=== PATIENT | male | born 1965 | race African-American/Black ===

== ENCOUNTER 2017-02-20 15:48 | Emergency (ER) | payer OTHER ==
[~2017-02-20] VITALS: Ht 190.5 cm; Wt 113.4 kg
--- NOTE | 2017-02-20 16:26 | ED HAND/WRIST INJURY COMPLAINT ---
History of Present Illness General Chief Complaint: Hand or Wrist Injury Stated Complaint: SIB [facility] MED FOR R WRIST EVAL Source: patient Exam Limitations: no limitations Vital Signs & Intake/Output Vital Signs & Intake/Output Vital Signs Date Time Temp Pulse Resp B/P B/P Pulse O2 O2 Flow FiO2 Mean Ox Delivery Rate 02/20 1817 97.8 56 18 142/83 97 Room Air 02/20 1552 98.1 71 20 135/96 96 Room Air ED Intake and Output 02/21 0000 02/20 1200 Intake Total Output Total Balance Patient 250 lb Weight Weight Reported by Patient Measurement Method Allergies Coded Allergies: No Known Allergies (02/20/17) Reconcile Medications Amoxicillin/Potassium Clav (Augmentin 875-125 Tablet) 875 MG-125 MG TABLET 1 TAB PO BID prophylaxis Candesartan Cilexetil 32 MG TABLET 1 TAB PO DAILY BP (Reported) Indomethacin 25 MG CAPSULE 1 CAP PO TID PRN pain/inflammation with food Triage Note: PT TO ED FOR EVAL OF RIGHT WRIST. 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 UNKNOWN INJURY. WENT TO [facility] TODAY AND WAS TOLD TO COME TO ED DUE TO THE REDNESS AND SWELLING IN WRIST. PT HAD A WRIST SPLINT ON SYSTEM CONFIGURATION SPECIALIST. DECLINING MEDS IN TRIAGE. [facility] WORKERS COMP FORM WAS FILED AT [facility]. Triage Nurses Notes Reviewed? yes Occurred: this morning Duration: day(s): (3) Timing: no prior history Injury Environment: work Severity: moderate Severity Numbers: 7 Pain/Injury Location: Right: Wrist. Method of Injury: unknown Modifying Factors: Improves With: immobilization. Worsens With: movement. HPI: Patient is a 51-year-old male with history of hypertension presenting to the emergency department with chief complaint of right wrist pain, swelling and redness and getting worse over the past 3 days. Denies any specific injury but started noticing worsening symptoms at work. Pain is worse with movement of the right wrist. Denies any numbness or tingling. Has been taking Tylenol with little relief. He also has been wearing a wrist splint at home with relief as a stabilizes his right wrist. He was seen at occupational medicine today for evaluation and they were concerned with the redness of the sentiment for evaluation. Denies history of gout. No fevers or chills. No change in diet. (FRAN SPRINGER) Past History Travel History Traveled to [place] past 21 day No Medical History Any Pertinent Medical History? see below for history Cardiovascular: hypertension Surgical History Surgical History: non-contributory Psychosocial History What is your primary language Korean Tobacco Use: Never used ETOH Use: denies use Illicit Drug Use: denies illicit drug use Family History Hx Contributory? No (FRAN SPRINGER) Review of Systems Review of Systems Constitutional: Reports: no symptoms. Comments Review of systems: See HPI, All other systems negative. Constitutional, no chills fever or weight loss HEENT: No visual changes no sore throat no congestion Cardiovascular: No chest pain ,palpitation , orthopnea or ankle swelling Skin, no jaundice Respiratory: No dyspnea cough sputum or hemoptysis GI: No nausea no vomiting : No dysuria No hematuria Muscle skeletal: no back pain, no neck pain, Neurologic: No numbness no ba Psych: No stress anxiety Immunology: No splenectomy or history of AIDS (FRAN SPRINGER) Physical Exam Physical Exam General Appearance: well developed/nourished, no apparent distress, alert, awake , comfortable Hand Left: normal inspection, normal range of motion Hand Right: swelling, tender Comments: Well-developed well-nourished person in no acute distress HEENT: Nose is atraumatic. Neck: Normal inspection Back: Nontender Cardiovascular: normal JVP Respiratory: No respiratory distress. Extremity: Tender to palpation over the right distal radius, distal ulna with limited range of motion. Mild to moderate edema appreciated over this area. Mild erythema in this area with warmth to palpation. Capillary refill is intact in upper extremity as bilaterally. Radial pulses are 2+ bilaterally. Maintenance Repairer strength is equal and symmetric bilaterally. Pain with right wrist flexion and extension. Positive Phalen test. Pain with right wrist ulnar and radial deviation. Neuro: Alert oriented x3, motor sensory normal Skin: Erythema noted over the low aspect of the right wrist otherwise No appreciable rash on exposed skin, skin is warm and dry. Psych: Mood and affect is normal, memory and judgment is normal. (FRAN SPRINGER) Progress Differential Diagnosis: abscess, cellulitis, contusion, compartment syndrome, dislocation, fracture, gout, septic arthritis, sprain, tenosynovitis Plan of Care: Orders Procedure Date/time Status BLOOD CULTURE 02/20 1634 Active URIC ACID 02/20 1625 Complete WESTERGREN SED RATE 05/05 162 Complete COMPREHENSIVE METABOLIC PANEL 02/20 1625 Complete CBC WITHOUT DIFFERENTIAL 02/20 1625 Complete Laboratory Tests 02/20/17 1640: Anion Gap 12, Estimated GFR > 60, BUN/Creatinine Ratio 17.5, Glucose 169 H, Uric Acid 6.4, Calcium 9.2, Total Bilirubin 0.7, AST 25, ALT 44, Alkaline Phosphatase 57, Total Protein 7.3, Albumin 4.4, Globulin 2.9, Albumin/Globulin Ratio 1.5, CBC w Diff NO MAN DIFF REQ, RBC 5.16, MCV 83.7, MCH 27.5, RDW 14.4, MPV 9.8, Gran % 61.6, Lymphocytes % 30.3, Monocytes % 6.1, Eosinophils % 1.4, Basophils % 0.6, Absolute Granulocytes 4.6, Absolute Lymphocytes 2.3, Absolute Monocytes 0.5, Absolute Eosinophils 0.1, Absolute Basophils 0, PUBS MCHC 32.9 L , ESR Westergren 8 Microbiology 02/20 1714 BLOOD: Blood Culture - RECD 02/20 170 BLOOD: Blood Culture - RECD Diagnostic Imaging: Viewed by Me: Radiology Read, Ultrasound. Discussed w/RAD: Radiology Read, Ultrasound. Radiology Impression: PATIENT: NIALL LEVY PRESENT AGE : 51 PATIENT ACCOUNT NO: [id number] : 65 LOCATION: [facility] ORDERING PHYSICIAN: FRAN PRICE SERVICE DATE: 02/20/17 EXAM TYPE: US - US-SUPERFICIAL IMAGING EXTREMI EXAMINATION: US SUPERFICIAL IMAGING, EXTREMITY CLINICAL INFORMATION: Soft tissue swelling and pain in volar aspect of wrist. COMPARISON: None TECHNIQUE: Real-time sonographic imaging of soft tissues at the volar, radial aspect of the distal right forearm and right wrist was performed using a high-resolution linear 12 MHz transducer. FINDINGS: Minimal edema within subcutaneous tissues in the area of concern. No focal fluid collection. The radial artery is normal and the radial veins are compressible; no evidence of venous thrombosis. No soft tissue mass or volar wrist ganglion. The flexor tendons at the radial aspect of the wrist have normal caliber and echotexture. There are no abnormal fluid collections along the tendon sheaths. IMPRESSION: 1. Minimal edema within subcutaneous tissues in the area of concern. 2. No evidence of soft tissue mass, abscess or tenosynovitis., RESENT AGE: 51 PATIENT ACCOUNT NO: [id number] : 65 LOCATION: [facility] ORDERING PHYSICIAN: FRAN PRICE SERVICE DATE: 02/20/17 EXAM TYPE: RAD - XRY-WRIST COMPLETE-RIGHT EXAMINATION: XR WRIST, RIGHT CLINICAL INFORMATION: Pain. Redness. COMPARISON: None TECHNIQUE: AP, lateral, and oblique views of the right wrist. FINDINGS: No fracture. No dislocation. No focal bone lesion. 2 mm osseous density just distal to the tip of the ulnar styloid is chronic. There is small vague soft tissue calcifications in the wrist adjacent to the distal pole of the navicular bone. No radiopaque foreign body. No air in the soft tissue. IMPRESSION: 1. No acute osseous of noted. 2. Vague small area of soft tissue calcifications near the distal pole navicular bone. These are nonspecific. Could be dystrophic. DICTATED BY: CANDE DUKES MD DATE/TIME DICTATED:02/20/171704 HYDROELECTRIC POWERPLANT SUPERVISOR:KAI DATE/TIME TRANSCRIBED:02/20/171704 CONFIDENTIAL, DO NOT COPY WITHOUT APPROPRIATE AUTHORIZATION. <Electronically signed in Other Vendor System> SIGNED BY: CANDE DUKES MD 02/20/171710 Comments: Patient is afebrile, no elevation in white blood cell count, sedimentation rate is within normal range. I do not think this is a septic joint. Likely inflammatory/reactive process. Patient having significant reduction in symptoms after Toradol. Patient will be sent home with anti-inflammatory as well as antibiotic to cover for potential of cellulitis. He will follow-up with his primary care physician. He'll continue wearing the wrist splints. (NATIVIDAD PRICE,FRAN) Departure Departure Time of Disposition: 1800 Disposition: HOME OR SELF CARE Condition: Stable Clinical Impression Primary Impression: Tendinitis Secondary Impressions: Wrist sprain Qualifiers: Encounter type: initial encounter Laterality: right Qualified Code: S63.501A - Unspecified sprain of right wrist, initial encounter Referrals: ROMAN HANSEN,BEV Avila (PCP/Family) Additional Instructions: Follow-up with your primary care physician call to make an appointment. Rest and elevate your right wrist is much as possible. Take anti-inflammatories starting tomorrow as prescribed. Also take antibiotics. Return for any worsening symptoms or if he develop any fevers or concerns. Continue wearing splint that you already have. Departure Forms: Customer Survey General Discharge Information Prescriptions: Current Visit Scripts Amoxicillin/Potassium Clav (Augmentin 875-125 Tablet) 1 TAB PO BID #14 TAB Indomethacin 1 CAP PO TID PRN pain/inflammation #30 CAP with food (FRAN SPRINGER) PA/SUPERVISOR TUNNEL HEADING Co-Sign Statement Statement: ED Attending supervision documentation- [] I saw and evaluated the patient. I have also reviewed all the pertinent lab results and diagnostic results. I agree with the findings and the plan of care as documented in the PA's/SUPERVISOR TUNNEL HEADING's documentation. [X] I have reviewed the ED Record and agree with the PA's/SUPERVISOR TUNNEL HEADING's documentation. [] Additions or exceptions (if any) to the PAs/SUPERVISOR TUNNEL HEADING's note and plan are summarized below: [] (LORETO HANSEN,LIZZ)
[2017-02-20 16:48] LABS: ABSOLUTE BASOPHIL COUNT 0 /CUMM (0.0-0.2); ABSOLUTE EOSINOPHIL COUNT 0.1 /CUMM (0.0-0.7); ABSOLUTE GRANULOCYTE CT 4.6 /CUMM (1.4-6.5); ABSOLUTE LYMPH COUNT 2.3 /CUMM (1.2-3.4); ABSOLUTE MONOCYTE COUNT 0.5 /CUMM (0.10-0.60); BASOPHIL % 0.6 % (0.0-2.0); EOSINOPHIL % 1.4 % (0-5); GRANULOCYTE % 61.6 % (42.2-75.2); HEMATOCRIT 43.2 % (42-52); MEAN CORPUSCULAR HGB 27.5 PG (27.0-31.0); MEAN CORPUSCULAR HGB CONC 32.9 G/DL (33.0-37.0); MEAN CORPUSCULAR VOLUME 83.7 FL (80.0-94.0); MEAN PLATELET VOLUME 9.8 FL (7.4-10.4); PLATELET COUNT 203 /CUMM (130-400); RBC DISTRIBUTION WIDTH 14.4 % (11.5-14.5); RED BLOOD CELL CT 5.16 /CUMM (4.70-6.10); WHITE BLOOD CELL COUNT 7.5 /CUMM (4.8-10.8)
--- NOTE | 2017-02-20 17:11 | RADIOLOGY REPORT ---
EXAMINATION: XR WRIST, RIGHT CLINICAL INFORMATION: Pain. Redness. COMPARISON: None TECHNIQUE: AP, lateral, and oblique views of the right wrist. FINDINGS: No fracture. No dislocation. No focal bone lesion. 2 mm osseous density just distal to the tip of the ulnar styloid is chronic. There is small vague soft tissue calcifications in the wrist adjacent to the distal pole of the navicular bone. No radiopaque foreign body. No air in the soft tissue. IMPRESSION: 1. No acute osseous of noted. 2. Vague small area of soft tissue calcifications near the distal pole navicular bone. These are nonspecific. Could be dystrophic.
--- NOTE | 2017-02-20 17:13 | ULTRASOUND REPORT ---
EXAMINATION: US SUPERFICIAL IMAGING, EXTREMITY CLINICAL INFORMATION: Soft tissue swelling and pain in volar aspect of wrist. COMPARISON: None TECHNIQUE: Real-time sonographic imaging of soft tissues at the volar, radial aspect of the distal right forearm and right wrist was performed using a high-resolution linear 12 MHz transducer. FINDINGS: Minimal edema within subcutaneous tissues in the area of concern. No focal fluid collection. The radial artery is normal and the radial veins are compressible; no evidence of venous thrombosis. No soft tissue mass or volar wrist ganglion. The flexor tendons at the radial aspect of the wrist have normal caliber and echotexture. There are no abnormal fluid collections along the tendon sheaths. IMPRESSION: 1. Minimal edema within subcutaneous tissues in the area of concern. 2. No evidence of soft tissue mass, abscess or tenosynovitis.
[2017-02-20] MEDS ORDERED: CANDESARTAN CIL32 M1 PO (17:58)
[2017-02-20] MEDS ORDERED: AUGMENTIN 875-1 EACH PO (18:08)
[2017-02-20] MEDS ORDERED: INDOMETHACIN25 M1 PO (18:08)
[2017-02-20 18:17] VITALS: BP 142/83
== END 2017-02-20 18:32 ==
LOC: ERH 15:48
PROVIDERS: Physician Assistant
DX: S63.501A Unspecified sprain of right wrist, initial encounter (principal); M77.8 Other enthesopathies, not elsewhere classified; X58.XXXA Exposure to other specified factors, initial encounter; Y93.9 Activity, unspecified; Y92.9 Unspecified place or not applicable
CPT/HCPCS: 73110-RT; 76881; 87040; 96374; 96375; J1885

== ENCOUNTER 2017-11-25 21:19 | Emergency (ER) | payer OTHER ==
[~2017-11-25] VITALS: Ht 190.5 cm; Wt 113.4 kg
[~2017-11-25 21:19] MED LIST: AUGMENTIN 875-1 EACH PO; CANDESARTAN CIL32 M1 PO; INDOMETHACIN25 M1 PO
[2017-11-25 21:25] VITALS: BP 162/104
--- NOTE | 2017-11-25 21:32 | ED UPPER/LOWER EXTREMITY COMPL ---
History of Present Illness General Chief Complaint: Upper Extremity Injury Stated Complaint: FALL LEAVING WORK, R ELBOW PAIN PER PT Source: patient Exam Limitations: no limitations Vital Signs & Intake/Output Vital Signs & Intake/Output Vital Signs Date Time Temp Pulse Resp B/P B/P Pulse O2 O2 Flow FiO2 Mean Ox Delivery Rate 11/255 97.1 74 18 162/104 98 Room Air Allergies Coded Allergies: No Known Allergies (02/20/17) Reconcile Medications Amoxicillin/Potassium Clav (Augmentin 875-125 Tablet) 875 MG-125 MG TABLET 1 TAB PO BID prophylaxis Candesartan Cilexetil 32 MG TABLET 1 TAB PO DAILY BP (Reported) Indomethacin 25 MG CAPSULE 1 CAP PO TID PRN pain/inflammation with food Triage Nurses Notes Reviewed? yes Onset: Abrupt Duration: minute(s):, constant Timing: single episode today Severity: moderate, severe No Modifying Factors: none HPI: 52-year-old male comes into the emergency room for further evaluation of right elbow and right wrist pain. Patient reports that he was leaving work and slipped on the ice outside. Denies hitting his head. Denies any injury or trauma anywhere else. Comes in for further evaluation. (Jossue Washington) Past History Travel History Traveled to [place] past 21 day No Medical History Any Pertinent Medical History? see below for history Neurological: NONE EENT: NONE Cardiovascular: hypertension Respiratory: NONE Gastrointestinal: NONE Hepatic: NONE Renal: NONE Musculoskeletal: NONE Psychiatric: NONE Endocrine: NONE Blood Disorders: NONE Cancer(s): NONE GENERAL PRACTITIONER/Reproductive: NONE Surgical History Surgical History: non-contributory Psychosocial History What is your primary language Tajik Tobacco Use: Never used ETOH Use: denies use Illicit Drug Use: denies illicit drug use Family History Hx Contributory? No (Jossue Washington) Review of Systems Review of Systems Constitutional: Reports: no symptoms. EENTM: Reports: no symptoms. Respiratory: Reports: no symptoms. Cardiovascular: Reports: no symptoms. Gastrointestinal/Abdominal: Reports: no symptoms. Genitourinary: Reports: no symptoms. Musculoskeletal: Reports: see HPI. Skin: Reports: no symptoms. Neurological/Psychological: Reports: no symptoms. Hematologic/Endocrine: Reports: no symptoms. Immunological: Reports: no symptoms. All Other Systems: Reviewed and Negative (Jossue Washington) Physical Exam Physical Exam General Appearance: well developed/nourished, mild distress Head: atraumatic Eyes: Bilateral: PERRL, EOMI. Ears, Nose, Throat: normal pharynx, normal ENT inspection, hearing grossly normal Neck: normal inspection, supple Cardiovascular/Respiratory: regular rate/rhythm Back: normal inspection Elbow Right: normal range of motion, bone tenderness, soft tissue tenderness Hand Right: pain with extension, full range of motion, radial pulse intact, Neurologic/Tendon: normal sensation, normal motor functions, normal tendon functions, responds to pain, no evidence tendon injury, no pulse deficit Skin: intact, normal color, warm/dry Lymphatic: no anterior cervical zayda (Lawrence PRICE,Jossue) Progress Differential Diagnosis: contusion, dislocation, fracture, sprain, tendon injury Plan of Care: Orders Procedure Date/time Status XRY-WRIST COMPLETE-RIGHT 11/25 2130 Active XRY-ELBOW 3 OR MORE VIEWS, R 11/25 2130 Active Current Medications Sig/Kady Start time Last Medication Dose Stop Time Status Admin Ibuprofen 800 MG ONCE ONE 11/25 2144 UNVr 11/25 (Motrin) 11/25 Diagnostic Imaging: Viewed by Me: Radiology Read. Discussed w/RAD: Radiology Read. Radiology Impression: PATIENT: NIALL LEVY PRESENT AGE : 52 PATIENT ACCOUNT NO: [id number] : 65 LOCATION: [facility] ORDERING PHYSICIAN: Jossue PRICE SERVICE DATE: 11/25/17 EXAM TYPE: RAD - XRY-ELBOW 3 OR MORE VIEWS, R; XRY-WRIST COMPLETE-RIGHT EXAMINATION: XR ELBOW, RIGHT XR WRIST, RIGHT CLINICAL INFORMATION: Fall with pain COMPARISON: 2016 TECHNIQUE: 4 views of the right elbow. 4 views of the right wrist. FINDINGS : Right elbow: No acute fracture or dislocation. No joint effusion. Prominent fragmented enthesophyte at the olecranon. Small enthesophyte at the medial humeral epicondyle. The soft tissues are unremarkable. Right wrist: There is no fracture or dislocation. The carpal rows are appropriately aligned. Joint spaces are maintained. Tiny ossific density at the tip of the ulnar styloid is unchanged. The soft tissues are unremarkable. IMPRESSION: No acute fracture or malalignment at the right elbow or wrist. DICTATED BY: Chaka HANSEN,Shaun DATE/TIME DICTATED:11/25/172201 EARTHMOVING PLANT OPERATOR:KAI DATE/TIME TRANSCRIBED:11/25/172201 CONFIDENTIAL, DO NOT COPY WITHOUT APPROPRIATE AUTHORIZATION. <Electronically signed in Other Vendor System> SIGNED BY: Shaun Null MD 11/25/172210 (Jossue Washington) Departure Departure Disposition: HOME OR SELF CARE Condition: Stable Clinical Impression Primary Impression: Right wrist sprain Secondary Impressions: Contusion, Olecranon bursitis of right elbow Referrals: Kaylan HANSEN,Heladio Avila (PCP/Family) Additional Instructions: Ice. Ibuprofen. Follow-up with occupational medicine. Return if any other concerns worsening symptoms. Please go over all results of today's visit with your primary care doctor. Contact your primary care doctor to let them know you were here in the emergency room. There may be nonspecific findings which may not be related to your visit today here in the emergency room but may require further evaluation and chronic monitoring by your primary care doctor. If you had a laceration today the chance of foreign body always remains. You should follow-up with your primary care doctor for recheck in 3-5 days for a wound check. If you had an x-ray done there is a chance that a fracture could have been missed on initial read and you should follow-up with your primary care doctor for repeat x-rays if symptoms persist. If your blood pressure was elevated here in the emergency room please have rechecked by [facility] primary care doctor within the next 48. If you were prescribed a narcotic here in the emergency room or any type of controlled substances you're not allowed to drive while taking this medication or operate any type of heavy machinery. Narcotics can make you feel lightheaded dizziness nausea and can cause constipation. You may need to cook pickled meat a stool softener. Thank you for choosing [facility] emergency room. Please return to the emergency room immediately if you have any other concerns worsening of symptoms. Departure Forms: Customer Survey General Discharge Information Comments 11/25/2017 11:13:53 PM No evidence of acute trauma. Ice. Rest. Ibuprofen. Follow-up with orthopedic doctor/occupational medicine as needed. (Jossue Washington) PA/PRIMER PRESS OPERATOR Co-Sign Statement Statement: ED Attending supervision documentation- I saw and evaluated the patient. I have also reviewed all the pertinent lab results and diagnostic results. I agree with the findings and the plan of care as documented in the PA's/PRIMER PRESS OPERATOR's documentation. x I have reviewed the ED Record and agree with the PA's/PRIMER PRESS OPERATOR's documentation. [] Additions or exceptions (if any) to the PAs/PRIMER PRESS OPERATOR's note and plan are summarized below: [] (Teresita HANSEN,Maurice)
--- NOTE | 2017-11-25 22:11 | RADIOLOGY REPORT ---
EXAMINATION: XR ELBOW, RIGHT XR WRIST, RIGHT CLINICAL INFORMATION: Fall with pain COMPARISON: 02/20/2017 TECHNIQUE: 4 views of the right elbow. 4 views of the right wrist. FINDINGS: Right elbow: No acute fracture or dislocation. No joint effusion. Prominent fragmented enthesophyte at the olecranon. Small enthesophyte at the medial humeral epicondyle. The soft tissues are unremarkable. Right wrist: There is no fracture or dislocation. The carpal rows are appropriately aligned. Joint spaces are maintained. Tiny ossific density at the tip of the ulnar styloid is unchanged. The soft tissues are unremarkable. IMPRESSION: No acute fracture or malalignment at the right elbow or wrist.
== END 2017-11-25 22:27 ==
LOC: ERH 21:19
DX: S63.501A Unspecified sprain of right wrist, initial encounter (principal); S50.01XA Contusion of right elbow, initial encounter; M70.21 Olecranon bursitis, right elbow; W00.0XXA Fall on same level due to ice and snow, initial encounter; Y92.9 Unspecified place or not applicable; Y93.9 Activity, unspecified
CPT/HCPCS: 73080-RT; 73110-RT